=== PATIENT | male | born 1995 | race African-American/Black ===

== ENCOUNTER 2021-06-21 12:35 | Inpatient (IN) ==
[2021-06-21] MEDS ORDERED: DEXAMETHASONE 4 MG/1 ML VIAL IM STA (14:47)
[2021-06-21] MEDS ORDERED: LIDOCAINE 2% 20 ML VIAL ONE (16:08)
[2021-06-21] MEDS ORDERED: propofoL 200 MG/20 ML VIAL IV ONE (16:15)
[2021-06-21] MEDS ORDERED: ONDANSETRON 4 MG/2 ML VIAL IV PRN (16:47)
[2021-06-21] MEDS ORDERED: ACETAMINOPHEN 325 MG TABLET PO PRN (16:47)
[2021-06-21 16:58] LABS: Basophils % 0.3 % (0.0-0.8); Eosinophils # 0.2 10*3/uL (0.0-0.87); Hematocrit 47.9 VOL% (42.0-52.0); Hemoglobin 15.8 GM/DL (14.0-18.0); Immature Granulocytes % 0.4 %; Immature Granulocytes Absolute 0.03 #; Lymphocytes # 1.2 10*3/uL (1.4-4.0); Lymphocytes % 16.2 % (21.2-54.2); Mean Corpuscular Volume 90.4 FL (87-102); Mean Platelet Volume 9.4 FL (9.6-12.0); Monocytes % 6.3 % (1.7-12.7); Neutrophils % 74.8 % (38.7-73.9); Platelet Count 282 T/CUMM (130-400); Red Cell Distribution Width 13.2 % (9.3-17.3); White Blood Count 7.4 T/CUMM (4-12)
[2021-06-21] MEDS: DEXTROSE 5% NACL 0.45% 1,000 ML IV SCH (17:21)
[2021-06-21 17:23] LABS: Calcium 9.3 MG/DL (8.5-10.1); Osmolality,Calculated 273.8 MOS/KG (273-304); Potassium 3.7 MMOL/L (3.5-5.1)
[2021-06-21] MEDS: HYDROmorphone 2 MG/1 ML VIAL IV PRN (17:38)
[2021-06-22] MEDS: HYDROmorphone 2 MG/1 ML VIAL IV PRN ×2 (02:04→20:43)
[2021-06-22] MEDS: DEXTROSE 5% NACL 0.45% 1,000 ML IV SCH ×2 (02:06→09:05)
[2021-06-22] MEDS: PANTOPRAZOLE 40 MG TABLET PO SCH (09:05)
[2021-06-22] MEDS ORDERED: ALBUTEROL/IPRATROPIUM 3 ML NEB RESP TX PRN (09:39)
[2021-06-22] MEDS ORDERED: ONDANSETRON 4 MG/2 ML VIAL IV PRN (09:39)
[2021-06-22] MEDS ORDERED: NON-FORMULARY MEDICATION (Albuterol Sulfate 90 mcg/actuation HFA aerosol inhaler) INH PRN (09:39)
[2021-06-22] MEDS: ENOXAPARIN 40 MG/0.4 ML SYRINGE SUBCUT SCH (11:25)
[2021-06-22] MEDS: ALBUTEROL/IPRATROPIUM 3 ML NEB RESP TX SCH ×3 (11:47→19:37)
[2021-06-22] MEDS ORDERED: INFLUENZA VIRUS VACCINE 0.5 ML SYRINGE IM ONE (14:27)
[2021-06-23] MEDS: ALBUTEROL/IPRATROPIUM 3 ML NEB RESP TX SCH ×4 (00:43→20:05)
[2021-06-23] MEDS: HYDROmorphone 2 MG/1 ML VIAL IV PRN ×3 (03:48→20:46)
[2021-06-23] MEDS: PANTOPRAZOLE 40 MG TABLET PO SCH (09:05)
[2021-06-23] MEDS: ENOXAPARIN 40 MG/0.4 ML SYRINGE SUBCUT SCH (10:14)
[2021-06-24] MEDS: ALBUTEROL/IPRATROPIUM 3 ML NEB RESP TX SCH ×4 (01:00→19:26)
[2021-06-24] MEDS: HYDROmorphone 2 MG/1 ML VIAL IV PRN ×2 (02:20→22:41)
[2021-06-24] MEDS: PANTOPRAZOLE 40 MG TABLET PO SCH (09:05)
[2021-06-24] MEDS: ENOXAPARIN 40 MG/0.4 ML SYRINGE SUBCUT SCH (10:10)
[2021-06-25] MEDS: ALBUTEROL/IPRATROPIUM 3 ML NEB RESP TX SCH ×4 (00:53→20:33)
[2021-06-25] MEDS: HYDROmorphone 2 MG/1 ML VIAL IV PRN (07:51)
[2021-06-25] MEDS: PANTOPRAZOLE 40 MG TABLET PO SCH (09:28)
[2021-06-25] MEDS: ENOXAPARIN 40 MG/0.4 ML SYRINGE SUBCUT SCH (13:46)
[2021-06-26] MEDS: HYDROmorphone 2 MG/1 ML VIAL IV PRN (00:06)
[2021-06-26] MEDS: ALBUTEROL/IPRATROPIUM 3 ML NEB RESP TX SCH ×3 (00:40→13:17)
[2021-06-26 05:14] LABS: Basophils % 0.5 % (0.0-0.8); Eosinophils # 0.9 10*3/uL (0.0-0.87); Eosinophils % 14.6 % (0.00-10.9); Hematocrit 44.7 VOL% (42.0-52.0); Hemoglobin 14.7 GM/DL (14.0-18.0); Immature Granulocytes % 0.8 %; Immature Granulocytes Absolute 0.05 #; Lymphocytes # 2.1 10*3/uL (1.4-4.0); Lymphocytes % 35.1 % (21.2-54.2); Mean Corpuscular HGB Conc 32.9 GM/DL (32-36); Mean Platelet Volume 8.7 FL (9.6-12.0); Monocytes % 7.3 % (1.7-12.7); Neutrophils % 41.7 % (38.7-73.9); Platelet Count 261 T/CUMM (130-400); Red Blood Count 4.91 MC/CUMM (3.8-5.5); Red Cell Distribution Width 12.9 % (9.3-17.3); White Blood Count 5.9 T/CUMM (4-12)
[2021-06-26 05:41] LABS: Eosinophils 19 % (0-10); Lymphocytes 32 % (20-55); Platelet Estimate Adequate; Segmented Neutrophils 43 % (50-85); Total Cells Counted 100
[2021-06-26] MEDS: PANTOPRAZOLE 40 MG TABLET PO SCH (08:10)
[2021-06-26 11:09] VITALS: BP 127/78
[2021-06-26] MEDS: ENOXAPARIN 40 MG/0.4 ML SYRINGE SUBCUT SCH (11:29)
== END 2021-06-26 16:52 | disposition home or self-care (01) | DRG 201 ==
LOC: N.ED 12:35 → N.EDINP 12:35 → N.3E 06-22 14:03
PROVIDERS: ADMIT Surgery; ATTEND Surgery